=== PATIENT | male | born 1980 | race Caucasian/White ===

== ENCOUNTER 2017-04-09 21:09 | Emergency (ER) | payer OTHER ==
[~2017-04-09] VITALS: Ht 274.3 cm; Wt 126.0 kg
[~2017-04-09 21:09] MED LIST: DOXY100T PO; HYDR-3580 PO; SULF1TAB47 PO; Z.0.NO CURRENT MEDS
[2017-04-09 21:19] VITALS: BP 147/87; PULSE 70; RESP 12; TEMP 99.2; O2SAT 97
[2017-04-09] MEDS ORDERED: DICL50TA PO (21:22)
[2017-04-09] MEDS ORDERED: SODIUM CHLOR 0.9% 1000 ML INJ 1,000 ML IV SCH (21:41)
[2017-04-09] MEDS ORDERED: ALEV220T14 PO (21:42)
--- NOTE | 2017-04-09 21:43 | PD ---
HPI Chief Complaint: Flank/Kidney Pain Time Seen by Provider: 21:33 Travel History International Travel<30 days: No Contact w/Intl Traveler<30days: No Traveled to known affect area: No History of Present Illness HPI This is a 36-year-old male who has a history of kidney stones who presents to the emergency department with right sided flank pain that's been going on intermittently for 2 days, migrating down into his right lower abdomen and into his groin associated with some cloudy and bloody urine. He says this feels just like his kidney stones in the past. He's felt nauseous but hasn't vomited. He's had 5 kidney stones that he knows of. He required lithotripsy once but all the rest passed on their own. He tried to manage this at home but his pain became intense this evening so he came to the emergency department. PFSH Past Medical History Heart Rhythm Problems: Yes (PALPITATIONS) Cardiovascular Problems: Yes Diminished Hearing: No Gastrointestinal Disorders: No Genitourinary: No Hypertension: Yes Kidney Stones: Yes Musculoskeletal: No Neurologic: No Reproductive: No Respiratory: No Immunizations Current: Yes Past Surgical History Joint Replacement: Yes (L SHOULDER INJRY REPAIR) Other Surgery: Yes Social History Alcohol Use: Yes ("RARE") Tobacco Use: No Substance Use: No Allergies-Medications (Allergen,Severity, Reaction): Coded Allergies: penicillin G (Unverified Adverse Reaction, Severe, Anaphylaxis, 04/09/17) Reported Meds & Prescriptions Reported Meds & Active Scripts Active Reported Aleve Arthritis (Naproxen Sodium) 220 Mg Tab 220 Mg PO BID Diclofenac Potassium 50 Mg Tab 50 Mg PO TID PRN Review of Systems Except as stated in HPI: all other systems reviewed are Neg Physical Exam Narrative GENERAL:Well appearing, no acute distress SKIN: Focused skin assessment warm and dry. HEAD: Atraumatic. Normocephalic. EYES: Pupils equal and round. No injection or drainage. ENT: Moist mucous membranes NECK: Trachea midline. CARDIOVASCULAR: Regular rate and rhythm. No murmur appreciated. RESPIRATORY: Clear to auscultation. Breath sounds equal bilaterally. GASTROINTESTINAL: Abdomen soft, non-tender, nondistended. : No CVA tenderness MUSCULOSKELETAL: No obvious deformities. NEUROLOGICAL: Awake and alert. No obvious cranial nerve deficits. Moving all extremities. PSYCHIATRIC: Appropriate mood and affect; insight and judgment normal. Data Data Last Documented VS Vital Signs Date Time Temp Pulse Resp B/P (MAP) Pulse Ox O2 Delivery O2 Flow Rate FiO2 04/09/17 22:07 69 17 156/89 (111) 97 Room Air 04/09/17 21:19 99.2 Orders Orders Complete Blood Count With Diff (04/09/17 21:41) Comprehensive Metabolic Panel (04/09/17 21:41) Urinalysis - C+S If Indicated (04/09/17 21:41) Iv Access Insert/Monitor (04/09/17 21:41) Ecg Monitoring (04/09/17 21:41) Oximetry (04/09/17 21:41) Ondansetron Inj (Zofran Inj) (04/09/17 21:45) Sodium Chlor 0.9% 1000 Ml Inj (Ns 1000 M (04/09/17 21:41) Sodium Chloride 0.9% Flush (Ns Flush) (04/09/17 21:45) Ketorolac Inj (Toradol Inj) (04/09/17 21:45) Morphine Inj (Morphine Inj) (04/09/17 21:45) Sodium Chlor 0.9% 1000 Ml Inj (Ns 1000 M (04/09/17 22:30) Labs Laboratory Tests Test 04/09/17 21:48 White Blood Count 8.3 TH/MM3 Red Blood Count 5.21 MIL/MM3 Hemoglobin 14.6 GM/DL Hematocrit 43.7 % Mean Corpuscular Volume 84.0 FL Mean Corpuscular Hemoglobin 28.1 PG Mean Corpuscular Hemoglobin Concent 33.5 % Red Cell Distribution Width 12.2 % Platelet Count 268 TH/MM3 Mean Platelet Volume 8.0 FL Neutrophils (%) (Auto) 64.8 % Lymphocytes (%) (Auto) 24.9 % Monocytes (%) (Auto) 7.7 % Eosinophils (%) (Auto) 1.8 % Basophils (%) (Auto) 0.8 % Neutrophils # (Auto) 5.4 TH/MM3 Lymphocytes # (Auto) 2.1 TH/MM3 Monocytes # (Auto) 0.6 TH/MM3 Eosinophils # (Auto) 0.1 TH/MM3 Basophils # (Auto) 0.1 TH/MM3 CBC Comment DIFF FINAL Differential Comment Blood Urea Nitrogen 17 MG/DL Creatinine 1.10 MG/DL Random Glucose 105 MG/DL Total Protein 7.7 GM/DL Albumin 4.2 GM/DL Calcium Level 9.2 MG/DL Alkaline Phosphatase 58 U/L Aspartate Amino Transf (AST/SGOT) 16 U/L Alanine Aminotransferase (ALT/SGPT) 25 U/L Total Bilirubin 0.3 MG/DL Sodium Level 139 MEQ/L Potassium Level 3.9 MEQ/L Chloride Level 106 MEQ/L Carbon Dioxide Level 25.5 MEQ/L Anion Gap 8 MEQ/L Estimat Glomerular Filtration Rate 75 ML/MIN MDM Medical Decision Making Medical Screen Exam Complete: Yes Emergency Medical Condition: Yes Interpretation(s) Afebrile, no tachycardia, mild hypertension No leukocytosis Electrolytes are reassuring Differential Diagnosis Nephrolithiasis, obstructive nephropathy, electrolyte abnormality, pyelonephritis, urinary tract infection Narrative Course This is a 36-year-old male who has a history of kidney stones in the past 2 presents to the emergency department with symptoms similar to prior. He appears quite well. He was given IV fluids and IV analgesia and he feels back to normal and would like to go home. We discussed the risks versus benefits of CT imaging and he agrees to do a trial of conservative management and he can return in 24-48 hrs. if his symptoms don't improve for imaging at that time. He successfully passed many stones in the past without intervention. He is unable to provide a urinalysis and because he feels so well here, he just wants to go home. I have low suspicion for infection given he has no leukocytosis and no fever. Patient will be discharged home with analgesia. Diagnosis Primary Impression: Kidney stone Patient Instructions: General Instructions Additional Instructions: If you develop severe pain, inability to eat or drink, or fever return to the emergency department. Use a strainer to try to catch your stone. Take lortab as needed for pain, and continue taking zofran as needed for nausea. Follow up with urology as soon as possible. Med/Other Pt SpecificInfo: Prescription(s) given Scripts Ondansetron Odt (Zofran Odt) 4 Mg Tab 4 MG SL Q6HR Y for Nausea/Vomiting, #10 TAB 0 Refills Prov: Zuri Miller MD 04/09/17 Hydrocodone-Acetaminophen (Lortab) 5-325 Mg Tab 1 TAB PO Q6H Y for PAIN, #10 TAB 0 Refills Prov: Zuri Miller MD 04/09/17 Disposition: 01 DISCHARGE HOME Condition: Stable Zuri Miller MD Apr 09, 2017 21:43
[2017-04-09] MEDS ORDERED: SODIUM CHLORIDE 0.9% FLUSH 10 ML FLUSH IV FLUSH PRN (21:45)
[2017-04-09] MEDS ORDERED: ONDANSETRON HCL 4 MG/2 ML VIAL IVP ONE (21:45)
[2017-04-09] MEDS ORDERED: KETOROLAC TROMETHAMINE 30 MG/ML (IVP) VIAL IVP ONE (21:45)
[2017-04-09] MEDS ORDERED: MORPHINE SULFATE 8 MG/ML INJ IV PUSH ONE (21:45)
[2017-04-09 21:53] LABS: AUTOMATED NEUTROPHIL # 5.4 TH/MM3 (1.8-7.7); BASOPHIL # 0.1 TH/MM3 (0-0.2); BASOPHIL % 0.8 % (0.0-2.0); EOSINOPHIL # 0.1 TH/MM3 (0-0.4); EOSINOPHIL % 1.8 % (0.0-4.0); HEMATOCRIT 43.7 % (39.0-51.0); HEMO FLAGS DIFF FINAL; LYMPH % 24.9 % (9.0-44.0); LYMPHOCYTE # 2.1 TH/MM3 (1.0-4.8); MEAN CORPUSCULAR HEMOGLOBIN 28.1 PG (27.0-34.0); MEAN CORPUSCULAR HGB CONC 33.5 % (32.0-36.0); MONO % 7.7 % (0.0-8.0); NEUT % 64.8 % (16.0-70.0); PLATELET COUNT 268 TH/MM3 (150-450); RED BLOOD COUNT 5.21 MIL/MM3 (4.50-5.90); RED CELL DISTRIBUTION WIDTH 12.2 % (11.6-17.2); WHITE BLOOD COUNT 8.3 TH/MM3 (4.0-11.0)
[2017-04-09 22:05] LABS: CHLORIDE 106 MEQ/L (98-107); POTASSIUM 3.9 MEQ/L (3.5-5.1); SODIUM (NA) 139 MEQ/L (136-145)
[2017-04-09 22:07] VITALS: BP 156/89; PULSE 69; RESP 17; O2SAT 97
[2017-04-09 22:09] LABS: ANION GAP 8 MEQ/L (5-15); BICARBONATE 25.5 MEQ/L (21.0-32.0); BLOOD UREA NITROGEN 17 MG/DL (7-18)
[2017-04-09 22:12] LABS: ALT (GPT) 25 U/L (12-78); AST (GOT) 16 U/L (15-37); GLOMERULAR FILTRATION RATE 75 ML/MIN (>89)
[2017-04-09 22:14] LABS: TOTAL BILIRUBIN ADULT 0.3 MG/DL (0.2-1.0)
[2017-04-09 22:15] LABS: ALKALINE PHOSPHATASE 58 U/L (45-117)
[2017-04-09] MEDS ORDERED: SODIUM CHLOR 0.9% 1000 ML INJ 1,000 ML IV ONE (22:30)
[2017-04-09] MEDS ORDERED: HYDR-3533 PO (23:19)
[2017-04-09] MEDS ORDERED: ZOFR4TAB3 SL (23:19)
[2017-04-09 23:25] VITALS: BP 141/75; PULSE 75; RESP 15; TEMP 99.1; O2SAT 98
== END 2017-04-09 23:42 | disposition home or self-care (01) ==
LOC: PHED 21:09
DX: N20.0 Calculus of kidney (principal); Z87.442 Personal history of urinary calculi
CPT/HCPCS: 80053; 85025; 96361; 96374; 96375; 99284; J1885; J2270; J2405; J7030

== ENCOUNTER 2017-11-30 09:10 | Emergency (ER) | payer OTHER ==
[~2017-11-30] VITALS: Ht 188 cm; Wt 148.3 kg
[~2017-11-30 09:10] MED LIST changes: +ALEV220T14 PO; +DICL50TA PO; -DOXY100T PO; +HYDR-3533 PO; -HYDR-3580 PO; -SULF1TAB47 PO; -Z.0.NO CURRENT MEDS; +ZOFR4TAB3 SL
[2017-11-30 09:13] VITALS: BP 169/88; PULSE 81; RESP 16; TEMP 98.4; O2SAT 95
--- NOTE | 2017-11-30 10:15 | PD ---
HPI Chief Complaint: Skin Problem Time Seen by Provider: 09:42 Travel History International Travel<30 days: No Contact w/Intl Traveler<30days: No Traveled to known affect area: No History of Present Illness HPI 37-year-old male presents emergency department for evaluation of right foot pain for approximately 2 months. Patient states that this pain started with swelling and mild redness. Says that he has tried hot baths soaks but his symptoms have not improved. Says he went to urgent care who recommended he come to the emergency department today for further evaluation. He says that he has a history of severe cellulitis versus osteomyelitis of the right foot in that required hospitalization. Says he has had multiple flareups but they usually go away. He has been to the urgent care multiple times since September and received prednisone and treatment for gout however, these regimens did not help him. Says his pain is moderate in severity, nonradiating. Located in the forefoot of the foot. Denies numbness or tingling. Denies fevers or chills. He decided to come in today because when he placed his foot into his boot for work, he was unable to tolerate the pain and swelling. Of note he says that he has had some cracking of his feet which may have contributed to this condition. PFSH Past Medical History Heart Rhythm Problems: Yes (PALPITATIONS) Cardiovascular Problems: Yes Diminished Hearing: No Gastrointestinal Disorders: No Genitourinary: No Hypertension: Yes Kidney Stones: Yes Musculoskeletal: No Neurologic: No Reproductive: No Respiratory: No Immunizations Current: Yes Past Surgical History Joint Replacement: Yes (L SHOULDER INJRY REPAIR) Other Surgery: Yes Social History Alcohol Use: Yes ("RARE") Tobacco Use: No Substance Use: No Allergies-Medications (Allergen,Severity, Reaction): Coded Allergies: penicillin G (Unverified Adverse Reaction, Severe, Anaphylaxis, 11/30/17) Reported Meds & Prescriptions Reported Meds & Active Scripts Active Doxycycline Hyclate 100 Mg Cap 100 Mg PO BID Review of Systems Except as stated in HPI: all other systems reviewed are Neg Physical Exam Narrative GENERAL: Well-nourished, well-developed patient, in NAD SKIN: Focused skin assessment warm/dry. No rashes or lesions. HEAD: Normocephalic. Atraumatic. THROAT: No pharyngeal injection, exudates, or tonsillar hypertrophy. Airway is patent. NECK: Supple, trachea midline. No JVD or lymphadenopathy. No meningismus. CARDIOVASCULAR: Regular rate and rhythm without murmurs, gallops, or rubs. RESPIRATORY: Breath sounds equal bilaterally. No accessory muscle use. No wheezes, rales, or rhonchi MUSCULOSKELETAL: No cyanosis, or edema. Right foot- mild edema when compared to the left, extending just distal to the ankle. Dorsalis pedis and posterior tibialis pulses present and bounding. Plantar aspect of foot with multiple cracks and obvious skin openings. Scaling present. No lymph angiopathic spread. BACK: Nontender without obvious deformity. No CVA tenderness. Data Data Last Documented VS Vital Signs Date Time Temp Pulse Resp B/P (MAP) Pulse Ox O2 Delivery O2 Flow Rate FiO2 11/30/17 11:44 75 16 143/83 (103) 95 Room Air 11/30/17 09:13 98.4 Orders Orders Complete Blood Count With Diff (11/30/17 10:05) Comprehensive Metabolic Panel (11/30/17 10:05) Prothrombin Time / Inr (Pt) (11/30/17 10:05) Act Partial Throm Time (Ptt) (11/30/17 10:05) Blood Culture (11/30/17 10:05) Ecg Monitoring (11/30/17 10:05) Iv Access Insert/Monitor (11/30/17 10:05) Oximetry (11/30/17 10:05) Westergren Sedimentation Rate (11/30/17 10:05) C-Reactive Protein (Crp) (11/30/17 10:05) Uric Acid (11/30/17 10:15) Doxycycline (Vibramycin) (11/30/17 13:30) Ed Discharge Order (11/30/17 13:31) Labs Laboratory Tests Test 11/30/17 10:15 11/30/17 10:50 11/30/17 10:55 White Blood Count 7.1 TH/MM3 Red Blood Count 5.28 MIL/MM3 Hemoglobin 15.1 GM/DL Hematocrit 44.9 % Mean Corpuscular Volume 85.1 FL Mean Corpuscular Hemoglobin 28.6 PG Mean Corpuscular Hemoglobin Concent 33.6 % Red Cell Distribution Width 12.3 % Platelet Count 238 TH/MM3 Mean Platelet Volume 9.0 FL Neutrophils (%) (Auto) 63.8 % Lymphocytes (%) (Auto) 24.7 % Monocytes (%) (Auto) 9.4 % Eosinophils (%) (Auto) 1.3 % Basophils (%) (Auto) 0.8 % Neutrophils # (Auto) 4.4 TH/MM3 Lymphocytes # (Auto) 1.8 TH/MM3 Monocytes # (Auto) 0.7 TH/MM3 Eosinophils # (Auto) 0.1 TH/MM3 Basophils # (Auto) 0.1 TH/MM3 CBC Comment DIFF FINAL Differential Comment Prothrombin Time 10.0 SEC Prothromb Time International Ratio 1.0 RATIO Activated Partial Thromboplast Time 26.0 SEC Uric Acid 6.7 MG/DL Erythrocyte Sedimentation Rate 7 mm/hr Blood Urea Nitrogen 12 MG/DL Creatinine 0.82 MG/DL Random Glucose 91 MG/DL Total Protein 8.1 GM/DL Albumin 4.1 GM/DL Calcium Level 9.5 MG/DL Alkaline Phosphatase 79 U/L Aspartate Amino Transf (AST/SGOT) 13 U/L Alanine Aminotransferase (ALT/SGPT) 32 U/L Total Bilirubin 0.3 MG/DL Sodium Level 140 MEQ/L Potassium Level 3.8 MEQ/L Chloride Level 108 MEQ/L Carbon Dioxide Level 27.5 MEQ/L Anion Gap 5 MEQ/L Estimat Glomerular Filtration Rate 105 ML/MIN C-Reactive Protein 1.24 MG/DL MDM Medical Decision Making Medical Screen Exam Complete: Yes Emergency Medical Condition: Yes Differential Diagnosis Osteomyelitis, cellulitis, bacteremia, gout Narrative Course 37-year-old male presents to the emergency department evaluation of swelling and pain to the right foot that has been present for 2 weeks. Says that the pain and swelling has waxed and waned but woke up this morning and he was unable to keep his foot in his boot so decided to come to the emergency department for evaluation. Patient says he does have a history of significant infection of his foot requiring admission and IV antibiotics. Labs ordered. Patient had imaging studies at urgent care. Imaging reviewed. Labs were significant for elevated CRP. No leukocytosis present. No obvious shift. Because of patient's history, will prescribe doxycycline for coverage. First dose given in the emergency department today. I advised that he follow-up with applications specialist. He states understanding. I also recommended foot care and changing socks regularly, especially while at work. Patient will take doxycycline twice a day. Advised to return for worsening or persistent symptoms. Diagnosis Primary Impression: Cellulitis Qualified Codes: L03.115 - Cellulitis of right lower limb Referrals: Ursula Hudson DPM Data Analyst Departure Forms: Tests/Procedures, Work Release Enter return to work date: December 03, 2017 Additional Instructions: Keep your feet clean and dry. Avoid exposures to potentially dirty water. I recommend changing socks 2 times a day especially while working. Continue the warm soaks. Consider exfoliating the thick portions of her feet to reduce the cracking. Follow-up with applications specialist as soon as possible. Scripts Doxycycline Hyclate (Doxycycline Hyclate) 100 Mg Cap 100 MG PO BID for Infection, #20 CAP 0 Refills Prov: Beny Soliz MD 11/30/17 Disposition: 01 DISCHARGE HOME Condition: Stable Marilee Mcconnell November 30, 2017 10:15
[2017-11-30 11:23] LABS: CHLORIDE 108 MEQ/L (98-107); SODIUM (NA) 140 MEQ/L (136-145)
[2017-11-30 11:26] LABS: CALCIUM 9.5 MG/DL (8.5-10.1)
[2017-11-30 11:27] LABS: ALBUMIN 4.1 GM/DL (3.4-5.0); BICARBONATE 27.5 MEQ/L (21.0-32.0); BLOOD UREA NITROGEN 12 MG/DL (7-18); GLUCOSE,RANDOM 91 MG/DL (74-106)
[2017-11-30 11:30] LABS: ALT (GPT) 32 U/L (12-78); AST (GOT) 13 U/L (15-37); C-REACTIVE PROTEIN 1.24 MG/DL (0.00-0.30); CREATININE 0.82 MG/DL (0.60-1.30); GLOMERULAR FILTRATION RATE 105 ML/MIN (>89)
[2017-11-30 11:31] LABS: TOTAL BILIRUBIN ADULT 0.3 MG/DL (0.2-1.0)
[2017-11-30 11:32] LABS: TOTAL PROTEIN 8.1 GM/DL (6.4-8.2)
[2017-11-30 11:33] LABS: ALKALINE PHOSPHATASE 79 U/L (45-117)
[2017-11-30 11:41] VITALS: RESP 18; O2SAT 97
[2017-11-30 11:44] VITALS: BP 143/83; PULSE 75; RESP 16; O2SAT 95
[2017-11-30 12:38] LABS: AUTOMATED NEUTROPHIL # 4.4 TH/MM3 (1.8-7.7); BASOPHIL # 0.1 TH/MM3 (0-0.2); BASOPHIL % 0.8 % (0.0-2.0); EOSINOPHIL # 0.1 TH/MM3 (0-0.4); EOSINOPHIL % 1.3 % (0.0-4.0); HEMATOCRIT 44.9 % (39.0-51.0); HEMOGLOBIN 15.1 GM/DL (13.0-17.0); LYMPH % 24.7 % (9.0-44.0); LYMPHOCYTE # 1.8 TH/MM3 (1.0-4.8); MEAN CELL VOLUME 85.1 FL (80.0-100.0); MEAN CORPUSCULAR HEMOGLOBIN 28.6 PG (27.0-34.0); MEAN CORPUSCULAR HGB CONC 33.6 % (32.0-36.0); MONO % 9.4 % (0.0-8.0); MONOCYTE # 0.7 TH/MM3 (0-0.9); NEUT % 63.8 % (16.0-70.0); PLATELET COUNT 238 TH/MM3 (150-450); RED BLOOD COUNT 5.28 MIL/MM3 (4.50-5.90); RED CELL DISTRIBUTION WIDTH 12.3 % (11.6-17.2); WHITE BLOOD COUNT 7.1 TH/MM3 (4.0-11.0)
[2017-11-30] MEDS ORDERED: DOXY100C PO (13:29)
[2017-11-30] MEDS ORDERED: DOXYCYCLINE HYCLATE 100 MG CAP PO ONE (13:30)
[2017-11-30 13:48] VITALS: BP 140/76
== END 2017-11-30 13:49 | disposition home or self-care (01) ==
LOC: PHED 09:10
DX: L03.115 Cellulitis of right lower limb (principal); R79.82 Elevated C-reactive protein (CRP); R00.2 Palpitations; I10 Essential (primary) hypertension; Z87.442 Personal history of urinary calculi; Z88.0 Allergy status to penicillin
CPT/HCPCS: 80053; 84550; 85025; 85610; 85652; 85730; 86140; 87040; 99283